=== PATIENT | male | born 1930 | race Caucasian/White ===

== ENCOUNTER 2016-10-08 15:58 | Emergency (ER) | payer MEDICARE, OTHER ==
[~2016-10-08] VITALS: Ht 180.3 cm; Wt 101.5 kg
[2016-10-08 16:02] VITALS: BP 134/65; PULSE 76; RESP 18; TEMP 98.1; O2SAT 99
[2016-10-08] MEDS ORDERED: ATEN25TA PO (16:30)
[2016-10-08] MEDS ORDERED: CLOP75TA PO (16:30)
[2016-10-08] MEDS ORDERED: ASPI81CH CHEW (16:30)
[2016-10-08] MEDS ORDERED: AMLO2.5T PO (16:30)
[2016-10-08] MEDS ORDERED: ATOR40TA16 PO (16:30)
[2016-10-08] MEDS ORDERED: [UNRECOGNIZED DRUG - OTHER] SQ (16:30)
[2016-10-08] MEDS ORDERED: SITA50 PO (16:30)
[2016-10-08] MEDS ORDERED: LISI-519 PO (16:30)
[2016-10-08] MEDS ORDERED: TOVI4TAB PO (16:30)
[2016-10-08] MEDS ORDERED: FURO20TA PO (16:30)
[2016-10-08] MEDS ORDERED: FENO145T2 PO (16:30)
[2016-10-08] MEDS ORDERED: [UNRECOGNIZED DRUG - OTHER] (16:30)
[2016-10-08] MEDS ORDERED: NATE60TA PO (16:30)
[2016-10-08] MEDS ORDERED: OMEGCAP19 (16:30)
[2016-10-08] MEDS ORDERED: MULT1TAB85 PO (16:30)
[2016-10-08] MEDS ORDERED: INSU1INJ14 SQ (16:30)
[2016-10-08] MEDS ORDERED: SODIUM CHLORIDE 0.9% FLUSH 5 ML FLUSH IVF PRN (16:45)
[2016-10-08 16:46] VITALS: O2SAT 96
[2016-10-08 16:57] LABS: CHLORIDE 104 MEQ/L (98-107); POTASSIUM 4.5 MEQ/L (3.5-5.1); SODIUM (NA) 139 MEQ/L (136-145)
[2016-10-08 16:58] VITALS: BP_SYST 102; BP_DIAS 48; BP_DIAS 52; PULSE 69; RESP 20; O2SAT 98
[2016-10-08 17:01] LABS: ANION GAP 16 MEQ/L (5-15); APTT (PATIENT) 21.7 SEC (24.3-30.1); BLOOD UREA NITROGEN 94 MG/DL (7-18); MAGNESIUM 2.7 MG/DL (1.5-2.5); PROTHROMBIN TIME - PATIENT 11.5 SEC (9.8-11.6)
[2016-10-08 17:04] LABS: ALT (GPT) 22 U/L (12-78); AST (GOT) 13 U/L (15-37); GLOMERULAR FILTRATION RATE 22 ML/MIN (>89)
[2016-10-08 17:06] LABS: TOTAL BILIRUBIN ADULT 0.2 MG/DL (0.2-1.0)
[2016-10-08 17:07] LABS: ALKALINE PHOSPHATASE 49 U/L (45-117); CREATINE KINASE 107 U/L (39-308)
--- NOTE | 2016-10-08 17:10 | RADHPO ---
EXAM DATE/TIME: 10/08/2016 16:42 [facility] COMPARISON: No previous studies available for comparison. INDICATIONS : Short of breath. MEDICAL HISTORY : Cardiovascular disease. SURGICAL HISTORY : CABG. cardiac stent ENCOUNTER: Initial ACUITY: 2 weeks PAIN SCORE: 0/10 LOCATION: Bilateral upper chest FINDINGS: There is mild streaky basilar parenchymal opacity. No significant effusion. Cardiomediastinal contour s are satisfactory. Sternotomy wires are present. CONCLUSION: Mild streaky basilar parenchymal opacities Maxi Chacon MD on October 08, 2016 at 17:07 Board Certified Radiologist. This report was verified electronically.
[2016-10-08 17:16] LABS: AUTOMATED NEUTROPHIL # 12.9 TH/MM3 (1.8-7.7); BASOPHIL # 0.2 TH/MM3 (0-0.2); EOSINOPHIL % 0.1 % (0.0-4.0); HEMATOCRIT 22.9 % (39.0-51.0); LYMPH % 8.2 % (9.0-44.0); LYMPHOCYTE # 1.2 TH/MM3 (1.0-4.8); MEAN CELL VOLUME 88.1 FL (80.0-100.0); MEAN CORPUSCULAR HEMOGLOBIN 30.3 PG (27.0-34.0); MEAN CORPUSCULAR HGB CONC 34.4 % (32.0-36.0); NEUT % 84.7 % (16.0-70.0); PLATELET COUNT 230 TH/MM3 (150-450); RED CELL DISTRIBUTION WIDTH 14.8 % (11.6-17.2); WHITE BLOOD COUNT 15.2 TH/MM3 (4.0-11.0)
[2016-10-08 17:19] LABS: CKMB 5.7 NG/ML (0.5-3.6)
[2016-10-08 17:22] LABS: HEMO FLAGS DIFF FINAL
--- NOTE | 2016-10-08 17:49 | RADHPO ---
EXAM DATE/TIME: 10/08/2016 17:02 [facility] COMPARISON: No previous studies available for comparison. INDICATIONS : Bilateral leg swelling. MEDICAL HISTORY : Hypertension. Diabetes. SURGICAL HISTORY : Coronary artery stent. Foot surgery. ENCOUNTER: Initial ACUITY: 4 - 6 days PAIN SCORE: 3/10 LOCATION: Bilateral leg. TECHNIQUE: Venous ultrasound of the left and right leg was performed from the inguinal ligament to the proximal calf. Real-time, color Doppler and spectral tracing, compression and augmentation techniques were us ed. FINDINGS: RIGHT LEG: There is normal compressibility of the deep venous system from the inguinal region to the proximal ca lf. No echogenic clot is seen in the lumen of the common femoral, femoral, popliteal, and posterior tibial veins. There is a normal response of the venous system to proximal and distal augmentation an d respiration. LEFT LEG: There is normal compressibility of the deep venous system from the inguinal region to the proximal ca lf. No echogenic clot is seen in the lumen of the common femoral, femoral, popliteal, and posterior tibial veins. There is a normal response of the venous system to proximal and distal augmentation an d respiration. CONCLUSION: No DVT in bilateral lower extremities. Florencio Martin MD on October 08, 2016 at 17:47 Board Certified Radiologist. This report was verified electronically.
--- NOTE | 2016-10-08 18:04 | PD ---
HPI Chief Complaint: Respiratory Symptoms Time Seen by Provider: 16:23 Travel History International Travel<30 days: No Contact w/Intl Traveler<30days: No Traveled to known affect area: No History of Present Illness HPI Patient is an 85-year-old male with history of CABG and multiple stents since presents emergency Department with significant other for evaluation of left shoulder pain radiating down his arm accompanied with shortness of breath for the past few days. Patient also noted that his sugar has been much less controlled recently and his sugars been high as 200 and as low as 90. Patient does relate a history of chronic leg swelling as well. He's had some recent travel history from [place]. 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 He states his shortness of breath is been going on for the past day or so and when he told his significant other about it she decided they should come in and be checked out. She is concerned that it could be his heart. He denies any true substernal chest pain or back pain. Denies any cough or fevers. PFSH Past Medical History Diabetes: Yes Patient Takes Glucophage: No Hypertension: Yes Past Surgical History Cardiac Surgery: Yes (STENTS) Other Surgery: Yes (FOOT) Social History Alcohol Use: Yes Tobacco Use: No Substance Use: No Allergies-Medications (Allergen,Severity, Reaction): Coded Allergies: No Known Allergies (Unverified , 10/08/16) Reported Meds & Prescriptions Reported Meds & Active Scripts Active Reported Furosemide 20 Mg Tab Unknown Dose PO DAILY Price 3-6-9 Complex (Price 3 Fatty Acids-Price 6 FA) 1 Cap Cap Lisinopril 5 Mg Tab 5 Mg PO DAILY Atenolol 25 Mg Tab 25 Mg PO DAILY Atorvastatin (Atorvastatin Calcium) 40 Mg Tab 40 Mg PO HS Tresiba Flextouch Pen Inj (Insulin Degludec Inj) 300 unit/3 ML Pen 24 Units SQ HS [Novolog] 10 Units SQ BID [Prostalieve] Multivitamin Men (Multiple Vitamins W/ Minerals) 1 Tab Tab 1 Tab PO DAILY Nateglinide 60 Mg Tab 60 Mg PO TIDAC Januvia (Sitagliptin Phosphate) 50 Mg Tab 50 Mg PO DAILY Toviaz ER (Fesoterodine Fumarate) 4 mg Leeroy 4 Mg PO DAILY Aspirin 81 Mg Chew 81 Mg CHEW DAILY Fenofibrate 145 Mg Tab 145 Mg PO DAILY Clopidogrel (Clopidogrel Bisulfate) 75 Mg Tab 75 Mg PO DAILY Amlodipine (Amlodipine Besylate) 2.5 Mg Tab 2.5 Mg PO DAILY Review of Systems Except as stated in HPI: all other systems reviewed are Neg Physical Exam Narrative GENERAL: Well-developed well-nourished, mildly overweight but in no obvious distress. SKIN: Warm and dry. HEAD: Atraumatic. Normocephalic. EYES: Pupils equal and round. No scleral icterus. No injection or drainage. ENT: No nasal bleeding or discharge. Mucous membranes pink and moist. NECK: Trachea midline. No JVD. CARDIOVASCULAR: Regular rate and rhythm. No murmur appreciated. Midline surgical scar well healed. 2+ bilateral equal pulses in all 4 extremities. RESPIRATORY: No accessory muscle use. Clear to auscultation. Breath sounds equal bilaterally. GASTROINTESTINAL: Abdomen soft, non-tender, nondistended. Hepatic and splenic margins not palpable. MUSCULOSKELETAL: No obvious deformities. No clubbing. No cyanosis. There is 1 + pitting edema to bilateral lower extremities. Homans sign is negative. Skin changes consistent with chronic venous stasis. There is no tenderness to the left shoulder left elbow left wrist and no obvious deformities. Palpation chest wall is nontender. NEUROLOGICAL: Awake and alert. No obvious cranial nerve deficits. Motor grossly within normal limits. Normal speech. PSYCHIATRIC: Appropriate mood and affect; insight and judgment normal. Quite pleasant. Data Data Last Documented VS Vital Signs Date Time Temp Pulse Resp B/P Pulse Ox O2 Delivery O2 Flow Rate FiO2 10/08/16 16:58 69 20 102/48 98 102/52 10/08/16 16:58 Nasal Cannula 2 10/08/16 16:02 98.1 Orders Electrocardiogram (10/08/16 16:32) Ckmb (Isoenzyme) Profile (10/08/16 16:32) Complete Blood Count With Diff (10/08/16 16:32) Comprehensive Metabolic Panel (10/08/16 16:32) Magnesium (Mg) (10/08/16 16:32) Prothrombin Time / Inr (Pt) (10/08/16 16:32) Act Partial Throm Time (Ptt) (10/08/16 16:32) Troponin I (10/08/16 16:32) Chest, Single Ap (10/08/16 16:32) Ecg Monitoring (10/08/16 16:32) Bilateral Bp Monitoring (10/08/16 16:32) Iv Access Insert/Monitor (10/08/16 16:32) Oximetry (10/08/16 16:32) Oxygen Administration (10/08/16 16:32) Sodium Chloride 0.9% Flush (Ns Flush) (10/08/16 16:45) Ct Pulmonary Angiogram (10/08/16 16:32) Us Leg Venous Doppler Bilat (10/08/16 16:32) CKMB (10/08/16 16:40) CKMB% (10/08/16 16:40) Labs Laboratory Tests Test 10/08/16 16:40 White Blood Count 15.2 TH/MM3 Red Blood Count 2.60 MIL/MM3 Hemoglobin 7.9 GM/DL Hematocrit 22.9 % Mean Corpuscular Volume 88.1 FL Mean Corpuscular Hemoglobin 30.3 PG Mean Corpuscular Hemoglobin 34.4 % Concent Red Cell Distribution Width 14.8 % Platelet Count 230 TH/MM3 Mean Platelet Volume 8.8 FL Neutrophils (%) (Auto) 84.7 % Lymphocytes (%) (Auto) 8.2 % Monocytes (%) (Auto) 6.0 % Eosinophils (%) (Auto) 0.1 % Basophils (%) (Auto) 1.0 % Neutrophils # (Auto) 12.9 TH/MM3 Lymphocytes # (Auto) 1.2 TH/MM3 Monocytes # (Auto) 0.9 TH/MM3 Eosinophils # (Auto) 0.0 TH/MM3 Basophils # (Auto) 0.2 TH/MM3 CBC Comment DIFF FINAL Differential Comment Prothrombin Time 11.5 SEC Prothromb Time International 1.0 RATIO Ratio Activated Partial 21.7 SEC Thromboplast Time Sodium Level 139 MEQ/L Potassium Level 4.5 MEQ/L Chloride Level 104 MEQ/L Carbon Dioxide Level 19.0 MEQ/L Anion Gap 16 MEQ/L Blood Urea Nitrogen 94 MG/DL Creatinine 2.80 MG/DL Estimat Glomerular Filtration 22 ML/MIN Rate Random Glucose 339 MG/DL Calcium Level 8.6 MG/DL Magnesium Level 2.7 MG/DL Total Bilirubin 0.2 MG/DL Aspartate Amino Transf 13 U/L (AST/SGOT) Alanine Aminotransferase 22 U/L (ALT/SGPT) Alkaline Phosphatase 49 U/L Total Creatine Kinase 107 U/L Creatine Kinase MB 5.7 NG/ML Troponin I LESS THAN 0.02 NG/ML Total Protein 6.4 GM/DL Albumin 3.2 GM/DL MDM Medical Decision Making Medical Screen Exam Complete: Yes Emergency Medical Condition: Yes Interpretation(s) EKG shows sinus rhythm with borderline first-degree heart rate a HI interval of 198, normal axis and early R-wave transition. There are ST-T flattening's in V1 and V2 as well as V5 and V6. These are nonspecific findings. No previous for comparison. Differential Diagnosis ACS, AMI, uremia, PE seems unlikely, DVT, Narrative Course Patient was roomed in the emergency department, he appears well in no apparent distress. His fairly clear that he does not want to be here from the beginning of her encounter. He is calm and cooperative and actually quite pleasant. PE does need consideration given his leg swelling, ultrasound DVTs of bilateral lower extremities are negative. Conduction of a PE study was precluded by his kidney function a creatinine at 2.8 and a BUNs of 94 with a tCO2 of 19.0. Random glucose of 339. Patient is not tachycardic and not tachypneic. He was at this point that I highly recommended that he be admitted to the hospital for further evaluation. He states she's been followed by a consulting sales executive. however he has never been to our institution before there is no previous labs for comparison. His potassium is 4.5 at this time. He is euvolemic by assessment. Patient is closing on needing dialysis with these labs and I have discussed with him that if he declines admission and evaluation by a consulting sales executive as well as exclusion of PE he is sick significant risk of health decline a significant risk of permanent disability and even a significant risk of within the near future. Patient verbalized understanding to these risks and still wished to leave AMA to follow-up with his physicians in [place] which he states he can do this week. Patient is alert and awake and oriented and has ability to make his own medical decisions at this point and there is no indication to hold him against his will. Other significant workup shows a chest x-ray which is within normal limits, DVT ultrasound negative, white blood cell count of 15.2 with neutrophil predominance , hemoglobin of 7.9. Platelets of 2:30. Diagnosis Primary Impression: Acute kidney failure Qualified Code: N17.9 - Acute renal failure, unspecified acute renal failure type Additional Impressions: Metabolic acidosis Dyspnea Qualified Code: R06.00 - Dyspnea, unspecified type Uremia Disposition: 07 AGAINST MEDICAL ADVICE Condition: Stable Lev Keller MD Oct 08, 2016 18:04
--- NOTE | 2016-10-09 10:18 | EKG ---
Date Performed: 10/08/2016 Time Performed: 16:44:22 PTAGE: 85 years EKG: Sinus rhythm with 2nd degree A-V block, [place] I ([place]) Possible inferior infarct - age undetermined Idris lateral ST-T changes may be due to myocardial ischemia Abnormal ECG NO PREVIOUS TRACING DOCTOR: Lino Butler Interpretating Date/Time 10/09/2016 10:16:11
== END 2016-10-08 18:19 | disposition left against medical advice (07) ==
LOC: PHED 15:58
DX: N17.9 Acute kidney failure, unspecified (principal); E11.21 Type 2 diabetes mellitus with diabetic nephropathy; I12.9 Hypertensive chronic kidney disease with stage 1 through stage 4 chronic kidney disease, or unspecified chronic kidney disease; R06.00 Dyspnea, unspecified; Z95.1 Presence of aortocoronary bypass graft
CPT/HCPCS: 71010; 80053; 82550; 82552; 83735; 84484; 85025; 85610; 85730; 93005; 93970